=== PATIENT | female | born 1950 | race Caucasian/White ===

== ENCOUNTER 2021-08-13 05:53 | Inpatient (IN) ==
[2021-08-05 11:26] LABS: Basophils # 0.1 10*3/uL (0.0-0.2); Eosinophils # 0.2 10*3/uL (0.0-0.87); Eosinophils % 3.3 % (0.00-10.9); Hematocrit 47.1 VOL% (35.7-47.0); Hemoglobin 14.9 GM/DL (12.0-16.0); Immature Granulocytes % 0.3 %; Immature Granulocytes Absolute 0.02 #; Lymphocytes # 2.4 10*3/uL (1.4-4.0); Lymphocytes % 39.3 % (21.3-54.2); Mean Corpuscular HGB Conc 31.6 GM/DL (32-36); Mean Corpuscular Volume 89.4 FL (87-102); Mean Platelet Volume 9.9 FL (9.6-12.0); Monocytes % 7.5 % (1.7-12.7); Neutrophils % 48.6 % (38.7-73.9); Platelet Count 394 T/CUMM (130-400); Red Blood Count 5.27 MC/CUMM (3.8-5.5); White Blood Count 6.1 T/CUMM (4-12)
[2021-08-05 11:45] LABS: Calcium 10.3 MG/DL (8.5-10.1); Osmolality,Calculated 282.1 MOS/KG (273-304); Potassium 3.9 MMOL/L (3.5-5.1)
[2021-08-13] MEDS ORDERED: SCOPOLAMINE 1.5 MG PATCH TRANSDERM ONE (06:00)
[2021-08-13] MEDS ORDERED: BUPIVACAINE MPF 0.25% 30 ML VIAL ONE (08:11)
[2021-08-13] MEDS ORDERED: LIDOCAINE 1%/EPI INJ 20 ML VIAL ONE (08:11)
[2021-08-13] MEDS ORDERED: ROCURONIUM 50 MG/5 ML VIAL IV ONE (08:29)
[2021-08-13] MEDS ORDERED: SUCCINYLCHOLINE 200 MG/10 ML VIAL ONE (08:29)
[2021-08-13] MEDS ORDERED: LIDOCAINE 2% 5 ML VIAL ONE (08:29)
[2021-08-13] MEDS ORDERED: propofoL 200 MG/20 ML VIAL IV ONE (08:29)
[2021-08-13] MEDS ORDERED: SEVOFLURANE 1 UNIT/15 MINUTE INH ONE (08:29)
[2021-08-13] MEDS ORDERED: fentaNYL 100 MCG/2 ML VIAL ONE (08:30)
[2021-08-13] MEDS ORDERED: MIDAZOLAM 2 MG/2 ML VIAL ONE (08:30)
[2021-08-13] MEDS ORDERED: HYDROmorphone 2 MG/1 ML VIAL IV PRN (11:09)
[2021-08-13] MEDS ORDERED: KETOROLAC 15 MG/1 ML VIAL IV PRN (11:09)
[2021-08-13] MEDS ORDERED: ALBUTEROL/IPRATROPIUM 3 ML NEB RESP TX PRN (11:09)
[2021-08-13] MEDS ORDERED: ONDANSETRON 4 MG/2 ML VIAL IV PRN (11:09)
[2021-08-13] MEDS ORDERED: BISACODYL 5 MG TABLET PO PRN (11:09)
[2021-08-13] MEDS: LACTATED RINGERS 1,000 ML IV SCH (13:43)
[2021-08-13] MEDS: ACETAMINOPHEN 325 MG TABLET PO PRN ×2 (18:00→23:53)
[2021-08-14 06:08] LABS: Basophils % 0.4 % (0.0-0.8); Eosinophils % 0.1 % (0.00-10.9); Hematocrit 40.5 VOL% (35.7-47.0); Hemoglobin 13.1 GM/DL (12.0-16.0); Immature Granulocytes % 0.4 %; Immature Granulocytes Absolute 0.04 #; Lymphocytes # 1.8 10*3/uL (1.4-4.0); Lymphocytes % 17.2 % (21.3-54.2); Mean Corpuscular HGB Conc 32.3 GM/DL (32-36); Mean Corpuscular Volume 88.8 FL (87-102); Mean Platelet Volume 10.3 FL (9.6-12.0); Monocytes % 8.2 % (1.7-12.7); Neutrophils % 73.7 % (38.7-73.9); Platelet Count 367 T/CUMM (130-400); Red Blood Count 4.56 MC/CUMM (3.8-5.5); Red Cell Distribution Width 13.2 % (9.3-17.3); White Blood Count 10.7 T/CUMM (4-12)
[2021-08-14 06:28] LABS: Calcium 9.1 MG/DL (8.5-10.1); Osmolality,Calculated 280.4 MOS/KG (273-304); Potassium 4.1 MMOL/L (3.5-5.1)
[2021-08-14] MEDS: PANTOPRAZOLE 40 MG TABLET PO SCH (08:16)
[2021-08-14] MEDS: CALCIUM (CARBONATE) 500 MG TABLET PO SCH ×2 (15:06→20:35)
[2021-08-14] MEDS: LACTATED RINGERS 1,000 ML IV SCH (15:52)
[2021-08-14] MEDS: DICLOFENAC 1% GEL 100 GM TUBE TOP SCH (20:36)
[2021-08-14] MEDS ORDERED: LETROZOLE 2.5 MG TABLET PO SCH (21:00)
[2021-08-15] MEDS: PANTOPRAZOLE 40 MG TABLET PO SCH ×2 (06:11→09:16)
[2021-08-15] MEDS ORDERED: METOPROLOL SUCCINATE XL 50 MG TABLET PO SCH (09:00)
[2021-08-15] MEDS ORDERED: hydroCHLOROthiazide 12.5 MG CAPSULE PO SCH (09:00)
[2021-08-15] MEDS: DICLOFENAC 1% GEL 100 GM TUBE TOP SCH ×2 (09:13→09:16)
[2021-08-15] MEDS: CALCIUM (CARBONATE) 500 MG TABLET PO SCH (09:13)
[2021-08-15 12:04] VITALS: BP 138/78
== END 2021-08-15 13:00 | disposition home or self-care (01) | DRG 627 ==
LOC: N.OR 05:53 → N.SDSINP 05:54 → N.2E 09:26
PROVIDERS: ADMIT Surgery; ATTEND Surgery